=== PATIENT | female | born 1955 | race Native Hawaiian/Other Pacific Islander ===

== ENCOUNTER 2023-01-20 09:00 | Outpatient (CLI) | payer OTHER ==
[2023-01-20 09:52] LABS: PLATELET COUNT 119 K/uL (152-353)
[2023-01-20 10:18] LABS: POTASSIUM 3.9 mmol/L (3.6-5.2)
== END 2023-01-20 19:25 | disposition home or self-care (01) ==
LOC: US 09:00
PROVIDERS: ATTEND Internal Medicine Gastroenterology
DX: K74.69 Other cirrhosis of liver (principal)
CPT/HCPCS: 36415; 80053; 82140; 85027; 85610